=== PATIENT | female | born 1975 | race Two or more races ===

== ENCOUNTER 2016-12-16 21:37 | Emergency (ER) | payer MEDICAID ==
[~2016-12-16] VITALS: Ht 172.7 cm; Wt 77.1 kg
[2016-12-16 23:02] VITALS: BP 147/112
== END 2016-12-16 23:22 | disposition home or self-care (01) ==
LOC: ER 21:39
DX: Z53.21 Procedure and treatment not carried out due to patient leaving prior to being seen by health care provider (principal)
CPT/HCPCS: A4606; Z7610

== ENCOUNTER 2021-05-05 18:22 | Emergency (ER) | payer MEDICAID, OTHER ==
[~2021-05-05] VITALS: Ht 172.7 cm; Wt 77.1 kg
[2021-05-05 20:16] VITALS: BP 156/81
[2021-05-05] MEDS ORDERED: IBUP-1958 PO (21:48)
== END 2021-05-05 21:50 | disposition home or self-care (01) ==
LOC: ER 18:22
DX: M79.641 Pain in right hand (principal); R22.31 Localized swelling, mass and lump, right upper limb; F17.200 Nicotine dependence, unspecified, uncomplicated; G43.909 Migraine, unspecified, not intractable, without status migrainosus; Z88.6 Allergy status to analgesic agent
CPT/HCPCS: 73130-TC

== ENCOUNTER 2023-08-24 12:44 | Emergency (ER) | payer OTHER ==
[~2023-08-24] VITALS: Ht 162.6 cm; Wt 91.2 kg
[~2023-08-24 12:44] MED LIST: IBUP-1958 PO
[2023-08-24] MEDS ORDERED: ACETAMINOPHEN ES 500 MG TABLET ONE (13:28)
[2023-08-24] MEDS ORDERED: ACETAMINOPHEN ES 500 MG TABLET PO ONE (13:30)
[2023-08-24 16:06] VITALS: BP 134/65; TEMP 97.4; O2SAT 100
== END 2023-08-24 16:06 ==
LOC: ER 13:32
DX: M25.521 Pain in right elbow (principal); G43.909 Migraine, unspecified, not intractable, without status migrainosus; F17.210 Nicotine dependence, cigarettes, uncomplicated; Z79.899 Other long term (current) drug therapy; Z88.5 Allergy status to narcotic agent
CPT/HCPCS: 73080-TC